=== PATIENT | female | born 1995 | race Caucasian/White ===

== ENCOUNTER 2017-03-19 09:39 | Emergency (ER) | payer BC ==
--- NOTE | 2017-03-19 11:39 | UC ---
Ear Complaint HPI - HPI Summary HPI Summary: 21 y/o female presents to the urgent care c/o Rt ear pain that woke her up this morning at 0200 am. Pain is 5/10 now. She took an Ibuprofen 800mg PO about 1hrs ago and pain decrease. She has decrease hearing. Pt states previous common cold for which she took Nyquill. Pt denies fever, SOB, sore throat, cough, N/V/D, abdominal pain. - History of Current Complaint Chief Complaint: UCEar Stated Complaint: EAR PAIN Time Seen by Provider: 03/19/17 11:38 Hx Obtained From: Patient Hx Last Menstrual Period: 02/27/17 ?: No Onset/Duration: Sudden Onset, Lasting Days - 2 days, Still Present Severity Initially: Moderate Severity Currently: Moderate Pain Intensity: 5 Pain Scale Used: 0-10 Numeric Aggravating Factors: Nothing Alleviating Factors: OTC Meds Associated Signs/Symptoms: Positive: Hearing Loss, URI Symptoms - Allergies/Home Medications Allergies/Adverse Reactions: Allergies Allergy/AdvReac Type Severity Reaction Status Date / Time No Known Allergies Allergy Verified 03/19/17 09:48 PMH/Surg Hx/FS Hx/Imm Hx Previously Healthy: Yes - Pt denies PMHX - Surgical History Surgical History: None - Family History Known Family History: Positive: None - Pt denies FMHX - Social History Occupation: Student Lives: With Family Alcohol Use: Occasionally Substance Use Type: Marijuana Smoking Status (MU): Never Smoked Tobacco Review of Systems Constitutional: Negative Skin: Negative Eyes: Negative ENT: Negative, Ear Ache - RT ear pain Respiratory: Negative Cardiovascular: Negative Gastrointestinal: Negative Genitourinary: Negative Motor: Negative Neurovascular: Negative Musculoskeletal: Negative Neurological: Negative Psychological: Negative Is Patient Immunocompromised?: No All Other Systems Reviewed And Are Negative: Yes Physical Exam Triage Information Reviewed: Yes Vital Signs: Initial Vital Signs Temp 98.1 F 03/19/17 09:49 Pulse 77 03/19/17 09:49 Resp 20 03/19/17 09:49 BP 107/66 03/19/17 09:49 Pulse Ox 99 03/19/17 09:49 - Additional Comments Vital signs: reviewed General: awake and alert, not toxic appearing. Skin: [place], warm and dry, no evidence of atopic dermatitis, psoriasis, seborrhea. HEENT: -Head: atraumatic, non tender; no scalp dermatitis. -Eyes: sclera and conjunctiva clear, PERRLA, EOMI -Ears: no pre- or postauricular lymphadenopathy or erythema; RT external ear clear, RT TM injected with erythema and purulent discharge.LF TM WNL, LF external ear canal clear., no vesicles, or bullae. No perforation. -Nose/Face: erythematous and edematous nasal mucosa with clear rhinorrhea, no frontal or maxillary sinus tender to palpation. -Mouth/Throat: Mucous membrane moist, posterior pharynx clear, no erythema or exudates. Neck: supple, FROM, nontender, no lymphadenopathy, no meningismus. Chest: Clear to auscultation, normal breath sounds Abd: soft, Bowel sounds active, Nontender. Back: no spinal or CVAT Neuro: A&O x4, GCS 15, no focal neuro deficits, normal behavior for age. Ear Complaint Course/Dx - Course Course Of Treatment: 21 y/o female presents to the urgent care c/o Rt ear pain that woke her up this morning at 0200 am. Pain is 5/10 now. She took an Ibuprofen 800mg PO about 1hrs ago and pain decrease. She has decrease hearing. Pt states previous common cold for which she took Nyquill. Pt denies fever, SOB , sore throat, cough, N/V/D, abdominal pain.Hx obtained. Pt with RT acaute otitis media on examination. Pt Rx Amoxicillin PO. Advised if symptoms do not improve or worsen to return to the urgent care or f/u with PCP for further management. Pt understood and agreed with D/C instructions. - Differential Dx/Diagnosis Differential Diagnosis/HQI/PQRI: Cerumen Impaction, Otitis Externa, Otitis Media , Perforated TM, Pharyngitis, URI Provider Diagnoses: 1- Acute RT otitis media Discharge - Discharge Plan Condition: Stable Disposition: HOME Prescriptions: Amoxicillin PO (*) [Amoxicillin 875 MG (*)] 875 mg PO BID #20 tab Patient Education Materials: Otitis Media (ED) Referrals: [facility] [Outside] - If Needed Additional Instructions: 1- Please take the full course of the antibiotic to avoid resistance. 2-Please take ibuprofen PO q6-8hrs prn OTC as instructed after meals to alleviate pain and swelling. Increase fluid intake, eat well, rest and avoid strenuous exercise 3-If symptoms do not improve or worsen please return to the urgent care or f/u with your PCP for further evaluation and treatment.
== END 2017-03-19 11:56 | disposition home or self-care (01) ==
LOC: UCEAST 09:39
DX: H66.91 Otitis media, unspecified, right ear (principal); F12.90 Cannabis use, unspecified, uncomplicated
CPT/HCPCS: 99202; G0463